=== PATIENT | male | born 2000 | race Caucasian/White ===

== ENCOUNTER 2018-02-19 20:04 | Emergency (ER) | payer OTHER, SELFPAY ==
[2018-02-19 20:05] VITALS: BP 156/88; PULSE 90; RESP 16; TEMP 37.2; O2SAT 100; BMI 21.5
--- NOTE | 2018-02-19 22:39 | ED.VISSUMM ---
- ER Visit Summary Date of Service: 02/19/18 Chief Complaint: Left fifth digit laceration History of Present Illness: The patient is a 17 M [id number] presents for laceration left fifth digit 2 hours prior to arrival. States he was skinning a deer when it slipped. He denied stabbing his finger he states it cuts across his digit. States could not move his finger. Denies numbness. Tetanus 4 years ago. 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 Physical Examination: General: Alert and oriented ?3, no acute distress HEENT: Normocephalic, atraumatic. Moist mucosa membranes Neck: supple, nontender. Cardiovascular: Regular rate and rhythm, no murmurs Respiratory: Normal breath sounds, symmetric, no distress Abdomen: Soft, nontender, nondistended Extremities: Left hand fifth digit: There is a 1.5 cm laceration volar aspect proximal phalanx of fifth digit. This was more radial. Subcutaneous exposure. Minimal bleeding. Patient was unable to move his DIP and PIP joint due to pain dorsally. Neuro: no focal neurological deficits. Test Results: [] Emergency Department Course and Treatment: Patient with laceration concerning for tendon injury. Patient was Anastas size, after desiccation he was able to have better movement at PIP and DIP. However during examination gently at the PIP with flexion against resistance, there was a pop noted. Still able to move at the P IP however DIP was loss. His sensation was intact. Unable to visualize any tendon during sterile evaluation. Wound was gently closed with 2 5-0 nylon sutures. Discussed with Dr. Benitez will place in a splint, start antibiotics and close follow-up as an outpatient for repair. Discussed with patient and family who agrees with plan. Keflex started. Treatment Plan: [] Disposition: Discharge Impression: Left pinky laceration with tendon injury status post laceration repair This note was generated with [employer] dictation software. It may contain incorrect words, spelling, and punctuation that were not noted in review of the chart prior to signing ED Disposition - Plan for ED Patient: Disposition: Home or Assisted Living Chief Complaint: Laceration Diagnosis: Laceration of left little finger with tendon involvement Instructions: ED Laceration Hand, ED Laceration Tendon Prescriptions: Cephalexin [Keflex] 500 mg PO Q6 #40 capsule Referrals: Gianfranco,Jordan, DO [Primary Care Provider] - Didier Benitez MD [STAFF PHYSICIAN] - 1 Day Additional Instructions: keep splint on. Take antibiotics as prescribed. Call Dr. Benitez in morning to be seen.
[2018-02-19] MEDS: Cephalexin 250 MG Capsule 500 MG PO (22:44)
[2018-02-19 23:03] VITALS: RESP 16
== END 2018-02-19 23:04 | disposition home or self-care (01) ==
PROVIDERS: Emergency Provider Emergency Medicine; Family Provider Family Medicine; PCP Family Medicine
DX: S61.217A Laceration without foreign body of left little finger without damage to nail, initial encounter (principal); S56.108A Unspecified injury of flexor muscle, fascia and tendon of left little finger at forearm level, initial encounter; W26.8XXA Contact with other sharp object(s), not elsewhere classified, initial encounter; Y93.89 Activity, other specified; Y92.89 Other specified places as the place of occurrence of the external cause; Y99.8 Other external cause status
CPT/HCPCS: 12001; 99284

== ENCOUNTER 2018-02-22 09:12 | Day surgery (SDC) | payer OTHER, SELFPAY ==
[2018-02-22] VITALS (7 sets, daily range): BP systolic 120–129; BP diastolic 64–76; PULSE 56–96; RESP 16–18; TEMP 36.8–37.5; O2SAT 98–100; BMI 23.6
[2018-02-22] MEDS: Cefazolin 2 GM in 0.9% Normal Saline 100 ML IV (14:15)
[2018-02-22] MEDS: Mupirocin Ointment 22gm Tube 1 APPLIC (15:49)
--- NOTE | 2018-02-22 15:56 | PCM.IMDPSTOP ---
Immediate Post-Op Note Date of Procedure: 02/22/18 Primary Surgeon/Physician: Didier Benitez bulldogger: None Pre-Operative Diagnosis: 1. 1.5 cm horizontal laceration left small finger over proximal phalanx (zone 2), suspect flexor tendon injury. 2. Smoker. Post-Operative Diagnosis: 1. 1.5 cm horizontal laceration left small finger over proximal phalanx (zone 2), suspect flexor tendon injury. 2. Flexor digitorum superficialis (FDS) tendon laceration left small finger (zone 2). 3. Flexor digitorum profundus (FDP) tendon laceration left small finger (zone 2). 4. Smoker. Surgery/Procedure Performed:: 1. Exploration 1.5 cm horizontal laceration left small finger over proximal phalanx (zone 2). 2. Repair flexor digitorum superficialis (FDS) tendon laceration left small finger (zone 2). 3. Repair flexor digitorum profundus (FDP) tendon laceration left small finger (zone 2). 4. Repair of A2 annular menea laceration left small finger. Description of Surgical Findings:: 17 year old man presents with a laceration to his left small finger on the volar aspect over the proximal phalanx in zone 2. This happened on 02/19/18 when he cut his left small finger with a knife while skinning a deer. He came to the ED with pain in his left small finger. He was unable to flex his left small finger. He denies any sensory deficits. In the ED, the wound was cleansed and suture repaired. A volar splint was applied. He was discharged on Keflex antibiotics. He has some discomfort when his finger is bumped. Patient is right hand dominant. Today the patient underwent exploration 1.5 cm horizontal laceration left small finger over proximal phalanx (zone 2) and repair flexor digitorum superficialis (FDS) tendon laceration left small finger (zone 2) and repair flexor digitorum profundus (FDP) tendon laceration left small finger (zone 2) and repair of A2 annular meena laceration left small finger. Total tourniquet time - 68 minutes. Estimated Blood Loss: 2 ml. Specimen's removed: None. Drains: None. Type of Anesthesia:: General - Admit VTE Documentation VTE Present on Admission: No VTE Mechan Device Prophylaxis: SCD's VTE Pharm Prophylaxis ordered?: No
--- NOTE | 2018-02-22 15:58 | PCM.DC ---
You will use the following diet at home:: No restrictions Discharge Activity: May not drive while taking narcotic pain medications., - - no lifting with left hand. keep left hand elevated. May shower in (days): 1 - wear plastic bag over spling left hand when showering. May resume sexual activity in: No Restrictions Weight Bearing Status: Weight bearing as tolerated Lifting Restrictions: no lifting with left hand. Keep extremity elevated above heart level: Left Arm Call your doctor if your incision/area has: Continuous Slow Oozing, Sudden Increased Bleeding, Increased Pain/ Swelling, Increased Redness, Swelling at the incision site Call your doctor if you observe: Fever of 101 or Higher, Coldness, Increased Pain, Shortness of breath, Chest pain, Calf discomfort, Uncontrolled pain Suture Line Care: - - after splint removed in the office or OT, apply antibiotic ointment to suture line daily. Cleanse incision/area with: - - wear plastic bag over left hand when showering. Allergies/Adverse Reactions: Allergies No Known Allergies Allergy (Verified 02/21/18 11:51) Medications to take at Discharge Cephalexin [Keflex] 500 mg PO Q6 #40 capsule 02/19/18 Oxycodone HCl/Acetaminophen [Percocet 5/325] 1 - 2 tab PO 4X/DAY PRN PRN 5 Days #40 tab 02/22/18 The following prescriptions were given: Oxycodone HCl/Acetaminophen [Percocet 5/325] 1 - 2 tab PO 4X/DAY PRN PRN 5 Days #40 tab PRN Reason: Pain Primary Care Physician: Jordan Medel DO [Primary Care Provider] - Test Results: Test results from this visit will be discussed in further detail at your follow-up appointment, if applicable. Please Follow Up With: Didier Benitez MD When: one week. call [phone] for appt. Please Follow Up With: occupational therapy - my office will make appt. When: within one week for a silastic splint and range of motion when appropriate Proposed Discharge Date: 02/22/18
--- NOTE | 2018-02-22 16:02 | DCINST_ITS ---
You will use the following diet at home:: No restrictions Discharge Activity: May not drive while taking narcotic pain medications., - - no lifting with left hand. keep left hand elevated. May shower in (days): 1 - wear plastic bag over spling left hand when showering. May resume sexual activity in: No Restrictions Weight Bearing Status: Weight bearing as tolerated Lifting Restrictions: no lifting with left hand. Keep extremity elevated above heart level: Left Arm Call your doctor if your incision/area has: Continuous Slow Oozing, Sudden Increased Bleeding, Increased Pain/ Swelling, Increased Redness, Swelling at the incision site Call your doctor if you observe: Fever of 101 or Higher, Coldness, Increased Pain, Shortness of breath, Chest pain, Calf discomfort, Uncontrolled pain Suture Line Care: - - after splint removed in the office or OT, apply antibiotic ointment to suture line daily. Cleanse incision/area with: - - wear plastic bag over left hand when showering. Allergies/Adverse Reactions: Allergies No Known Allergies Allergy (Verified 02/21/18 11:51) Medications to take at Discharge Cephalexin [Keflex] 500 mg PO Q6 #40 capsule 02/19/18 Oxycodone HCl/Acetaminophen [Percocet 5/325] 1 - 2 tab PO 4X/DAY PRN PRN 5 Days #40 tab 02/22/18 The following prescriptions were given: Oxycodone HCl/Acetaminophen [Percocet 5/325] 1 - 2 tab PO 4X/DAY PRN PRN 5 Days #40 tab PRN Reason: Pain Primary Care Physician: Jordan Medel DO [Primary Care Provider] - Test Results: Test results from this visit will be discussed in further detail at your follow- up appointment, if applicable. Please Follow Up With: Didier Benitez MD When: one week. call [phone] for appt. Please Follow Up With: occupational therapy - my office will make appt. When: within one week for a silastic splint and range of motion when appropriate Proposed Discharge Date: 02/22/18
--- NOTE | 2018-02-22 20:15 | PCM.OPRPT ---
Report of Operation Date of Procedure: 02/22/18 Pre-Operative Diagnosis: 1. 1.5 cm horizontal laceration left small finger over proximal phalanx (zone 2), suspect flexor tendon injury. 2. Smoker. Post-Operative Diagnosis: 1. 1.5 cm horizontal laceration left small finger over proximal phalanx (zone 2), suspect flexor tendon injury. 2. Flexor digitorum superficialis (FDS) tendon laceration left small finger (zone 2). 3. Flexor digitorum profundus (FDP) tendon laceration left small finger (zone 2). 4. Smoker. Surgery/Procedure Performed:: 1. Exploration 1.5 cm horizontal laceration left small finger over proximal phalanx (zone 2). 2. Repair flexor digitorum superficialis (FDS) tendon laceration left small finger (zone 2). 3. Repair flexor digitorum profundus (FDP) tendon laceration left small finger (zone 2). 4. Repair of A2 annular meena laceration left small finger. Description of Surgical Findings:: 17 year old man presents with a laceration to his left small finger on the volar aspect over the proximal phalanx in zone 2. This happened on 02/19/18 when he cut his left small finger with a knife while skinning a deer. He came to the ED with pain in his left small finger. He was unable to flex his left small finger. He denies any sensory deficits. In the ED, the wound was cleansed and suture repaired. A volar splint was applied. He was discharged on Keflex antibiotics. He has some discomfort when his finger is bumped. Patient is right hand dominant. Patient was informed of the risks and complications of the procedure including alternatives to surgery. These were discussed with the patient personally. Patient voices understanding and wishes to proceed. Some of the risks and complications were included in a form from the [employer] [place] [employer]. Some of the risks and complications that were discussed included but were not inclusive of failure to diagnose including symptom relief, pain, infection, numbness, stiffness, loss of digit, RSD (CRPS), need for further surgery, contracture, and wound healing problems. Encouraged patient to stop smoking as it may have deleterious effects on wound healing. Total tourniquet time - 68 minutes. resaw feeder: None Type of Anesthesia:: General Specimen's removed: None. Drains: None. Estimated Blood Loss (mL): 2 ml. Description of Procedure: Patient was taken to OR in supine position and was placed under general anesthesia. The left hand was prepped and draped in the usual fashion. SCD's were placed for DVT prophylaxis. Perioperative antibiotics were given intravenously. The left hand and forearm were elevated and wrapped with an Esmarch bandage and the tourniquet was elevated to 250 mmHg. Using xylocaine with epinephrine, the base of the left small finger in the metacarpal area was infiltrated for postop pain relief. Under loupe magnification, I made zig zag incisions both proximally and distally. Dissection was carried down to the tendon sheath. There was a hematoma in the tendon sheath indicative of tendon injury. I located the ulnar digital nerve and the radial digital nerve and they were both intact. There was disruption of part of the A2 annular meena. Using blunt dissection, I entered the tendon sheath and saw a complete laceration of the flexor digitorum superficialis (FDS) tendon at the level of the insertion. I then milked the palm distally and was able to see the proximal end of the flexor digitorum profundus (FDP) tendon as there was a complete laceration with this tendon as well. I then repaired the FDS tendon with a modified Robins suture technique using 4-0 Nylon suture. Next I used a 6-0 Prolene simple running epitendinous suture repair. I then brought the proximal end of the FDP tendon through the chiasm in the FDS tendon. I then repaired the FDP tendon with a modified Robins suture technique using 4-0 Nylon suture. Next I used a 6-0 Prolene simple running epitendinous suture repair. I repaired the A4 annular meena with 4-0 Vicryl figure of eight interrupted suture to minimize bowstringing of the tendons. The wound was irrigated with saline. I then closed the skin flaps using 5-0 Nylon simple interrupted and vertical mattress interrupted sutures. The tourniquet was released after 68 minutes. Hemostasis was obtained with gentle pressure and elevation. No vascular compromise was noted on the skin flaps. Grafts/Implants Used: None. - Complications None. - Admit VTE Documentation VTE Present on Admission: No VTE Mechan Device Prophylaxis: SCD's VTE Pharm Prophylaxis ordered?: No Code Visit Surgery Charges CPT - 76654 ICD-10 - S66.127A, S61.217A, F17.200 64616 S66.127A, S61.217A, F17.200
--- NOTE | 2018-02-24 00:15 | OP.PCM_ITS ---
Report of Operation Date of Procedure: 02/22/18 Pre-Operative Diagnosis: 1. 1.5 cm horizontal laceration left small finger over proximal phalanx (zone 2), suspect flexor tendon injury. 2. Smoker. Post-Operative Diagnosis: 1. 1.5 cm horizontal laceration left small finger over proximal phalanx (zone 2), suspect flexor tendon injury. 2. Flexor digitorum superficialis (FDS) tendon laceration left small finger (zone 2). 3. Flexor digitorum profundus (FDP) tendon laceration left small finger (zone 2). 4. Smoker. Surgery/Procedure Performed:: 1. Exploration 1.5 cm horizontal laceration left small finger over proximal phalanx (zone 2). 2. Repair flexor digitorum superficialis (FDS) tendon laceration left small finger (zone 2). 3. Repair flexor digitorum profundus (FDP) tendon laceration left small finger (zone 2). 4. Repair of A2 annular meena laceration left small finger. Description of Surgical Findings:: 17 year old man presents with a laceration to his left small finger on the volar aspect over the proximal phalanx in zone 2. This happened on 02/19/18 when he cut his left small finger with a knife while skinning a deer. He came to the ED with pain in his left small finger. He was unable to flex his left small finger. He denies any sensory deficits. In the ED, the wound was cleansed and suture repaired. A volar splint was applied. He was discharged on Keflex antibiotics. He has some discomfort when his finger is bumped. Patient is right hand dominant. Patient was informed of the risks and complications of the procedure including alternatives to surgery. These were discussed with the patient personally. Patient voices understanding and wishes to proceed. Some of the risks and complications were included in a form from the [place] [employer]. Some of the risks and complications that were discussed included but were not inclusive of failure to diagnose including symptom relief, pain, infection, numbness, stiffness, loss of digit, RSD (CRPS), need for further surgery, con tracture, and wound healing problems. Encouraged patient to stop smoking as it may have deleterious effects on wound healing. Total tourniquet time - 68 minutes. ventilating equipment installer: None Type of Anesthesia:: General Specimen's removed: None. Drains: None. Estimated Blood Loss (mL): 2 ml. Description of Procedure: Patient was taken to OR in supine position and was placed under general anesthesia. The left hand was prepped and draped in the usual fashion. SCD's were placed for DVT prophylaxis. Perioperative antibiotics were given intravenously. The left hand and forearm were elevated and wrapped with an Esmarch bandage and the tourniquet was elevated to 250 mmHg. Using xylocaine with epinephrine, the base of the left small finger in the metacarpal area was infiltrated for postop pain relief. Under loupe magnification, I made zig zag incisions both proximally and distally. Dissection was carried down to the tendon sheath. There was a hematoma in the tendon sheath indicative of tendon injury. I located the ulnar digital nerve and the radial digital nerve and they were both intact. There was disruption of part of the A2 annular meena. Using blunt dissection, I entered the tendon sheath and saw a complete laceration of the flexor digitorum superficialis (FDS) tendon at the level of the insertion. I then milked the palm distally and was able to see the proximal end of the flexor digitorum profundus (FDP) tendon as there was a complete laceration with this tendon as well. I then repaired the FDS tendon with a modified Robins suture technique using 4-0 Nylon suture. Next I used a 6-0 Prolene simple running epitendinous suture repair. I then brought the proximal end of the FDP tendon through the chiasm in the FDS tendon. I then repaired the FDP tendon with a modified Robins suture technique using 4-0 Nylon suture. Next I used a 6-0 Prolene simple running epitendinous suture repair. I repaired the A4 annular meena with 4-0 Vicryl figure of eight interrupted suture to minimize bowstringing of the tendons. The wound was irrigated with saline. I then closed the skin flaps using 5-0 Nylon simple interrupted and vertical mattress interrupted sutures. The tourniquet was released after 68 minutes. Hemostasis was obtained with gentle pressure and elevation. No vascular compromise was noted on the skin flaps. Grafts/Implants Used: None. - Complications None. - Admit VTE Documentation VTE Present on Admission: No VTE Mechan Device Prophylaxis: SCD's VTE Pharm Prophylaxis ordered?: No Code Visit Surgery Charges CPT - 98695 ICD-10 - S66.127A, S61.217A, F17.200 55759 S66.127A, S61.217A, F17.200
== END 2018-02-22 18:00 | disposition home or self-care (01) ==
LOC: SDC 09:13 → AC 09:14
PROVIDERS: Family Provider Family Medicine; PCP Family Medicine; Referring Provider Surgery; Visit Provider Surgery
PROC: (CPT 26356; principal; 2018-02-22 11:10)
DX: S61.217A Laceration without foreign body of left little finger without damage to nail, initial encounter (principal); S66.127A Laceration of flexor muscle, fascia and tendon of left little finger at wrist and hand level, initial encounter; F17.200 Nicotine dependence, unspecified, uncomplicated; Z79.2 Long term (current) use of antibiotics; W26.0XXA Contact with knife, initial encounter; Y93.89 Activity, other specified; Y92.89 Other specified places as the place of occurrence of the external cause; Y99.8 Other external cause status
CPT/HCPCS: 01810; 26356; 26370; J7120

== ENCOUNTER 2018-04-06 08:00 | Outpatient (RCR) | payer OTHER, SELFPAY ==
[2018-02-22 09:38] VITALS: BMI 23.6
[2018-02-28 13:35] VITALS: BMI 23.6
--- NOTE | 2018-02-28 16:28 | HP.OTEVAL_ITS ---
Patient's Visit Information NATHAN AYALA is a 17 year old M, referred to Occupational Therapy by Didier Benitez, with a diagnosis of . Date of Evaluation: 02/28/18 Occupational Therapist: Nae Greco, EMILY/Sergio, CHT - Subjective Subjective: pt. arrives and states that he recently cut the volar aspect of his 5th digit in zone 2 while skinning a deer. the date of injury was 02/19/18. pt. had sx on 02/22/2018. Pt arrives at 6 days s/p in need of custom dorsal blocking orthosis and ed. on zone 2 flexor tendon repiar. - Pain L hand Pain Intensity Range: 0, 1, 2, 3, 4, 5 - ROM ROM Comments: NT d/t sx 6 days ago - Strength Strength Comments: NT d/t sx 6 days ago - Edema Other: no swelling - DASH-Disabilities of Arm, Shoulder& Hand DASH Sum: 68 - Goals Goal:100% adherence to protocol: Yes Comment: flexor tendon repair, zones 1-3, early passive mobilization Goal:Daily scar massage when approriate: Yes Goal:ROM equal to unaffected hand: Yes Goal:Low Voltage Electrician/Pinch strength at least 75% of unaffected hand: Yes Goal:No pain with affected hand use: Yes Goal:PIP Circumferences equal to unaffected hand: Yes Goal:Full use of affected hand in daily activities including: Yes Goal:Decrease scar hypersensitivity: Yes - Rehabilitation General Assessment: pt. presents with horizontal laceration left small finger over proximal phalanx (zone 2), suspect flexor tendon injury. 2. Flexor digitorum superficialis (FDS) tendon laceration left small finger (zone 2). 3. Flexor digitorum profundus (FDP) tendon laceration left small finger (zone 2). D/t recent repairs, pt. presents with decreased ROM, strength, increased pain /stiffness, decreased ability to complete BADL's and IADL's. pt. will benefit from OT services 1x/wk for 6 wks. Today, OT fabricated a dorsal blocking splint and educated and instructed pt. on PROM that pt. can complete within the constraints of the splint. Rehabilitation Potential: Good - Anticipated Interventions Anticipated Interventions: A/AAROM/PROM, Strengthening, Triggerpoint Release, Wound Care, Modalities, Orthoses, Joint Protection/Energy Conservation, Ergonomic Education, ADL Training, Education re Diagnosis, Home Program - Visit Plan Frequency: 1x/Week Duration: 6 Weeks TEXT: Thank you for the opportunity to evaluate your patient. For Medicare and Medicare HMO plans, please review the plan of care and approve it. It will need to be FAXED BACK to us at [phone] for Medicare purposes. Please let me know if there are questions or concerns regarding this plan of care. Physician Signature: Date:
--- NOTE | 2018-08-13 14:45 | HP.OT.NRP ---
HP - Discharge Summary - Patient Information NATHAN AYALA was seen in my office for initial evaluation on 02/28/18. The following Plan of Care was established for this patient: Initial Frequency: 1x/Week Initial Duration: 6 Weeks Plan: cont POC - Anticipated Interventions Anticipated Interventions: A/AAROM/PROM, Strengthening, Triggerpoint Release, Wound Care, Modalities, Orthoses, Joint Protection/Energy Conservation, Ergonomic Education, ADL Training, Education re Diagnosis, Home Program This patient was last seen in our office 04/06/18. Pertinent comments regarding their Occupational therapy will appear below: pt was seen for 6 OT visits. pt did not schedule further apts during this new year. Due to time-lapse in services pt d/c at this time. At this point I will be discontinuing this patient from occupational therapy. I would be happy to see this patient again in the future if found appropriate by the physician. Thank you! Nae Greco, OTR/L, CHT
== END 2018-04-06 19:00 | disposition home or self-care (01) ==
LOC: OT 08:00
PROVIDERS: Family Provider Family Medicine; PCP Family Medicine; Referring Provider Surgery; Visit Provider Surgery
DX: S66.127D Laceration of flexor muscle, fascia and tendon of left little finger at wrist and hand level, subsequent encounter (principal); S61.217D Laceration without foreign body of left little finger without damage to nail, subsequent encounter; F17.200 Nicotine dependence, unspecified, uncomplicated
CPT/HCPCS: 97035; 97110; 97140; 97166; 97760; 97763